=== PATIENT | female | born 1945 | race Two or more races ===

== ENCOUNTER 2024-01-13 06:40 | Inpatient (IN) | payer OTHER ==
[~2024-01-13] VITALS: Ht 165.1 cm; Wt 79.0 kg
[~2024-01-13 06:40] MED LIST: AMLO1TAB23 PO; HYDR50TA47 PO; METO25TA36 PO
[2024-01-13] MEDS ORDERED: DexAMETHasone SOD PHOS 4 MG/1ML SDV INJ ONE (06:48)
[2024-01-13] MEDS ORDERED: BUPIVACAINE W/ EPINEPH 0.5% INJ 50ML MDV IJ ONE (06:49)
[2024-01-13] MEDS ORDERED: LIDOCAINE 1% (LOCAL ANESTH.) PF 5ml SDV ONE (06:59)
[2024-01-13] MEDS ORDERED: fentaNYL CITRATE 100 MCG/2 ML VL ONE (07:59)
[2024-01-13] MEDS ORDERED: MEPERIDINE HCL (50 MG/ML) 1 ML VIAL ONE (08:00)
[2024-01-13] MEDS ORDERED: MIDAZOLAM HCL 2MG/2ML 2ml VIAL (1mg/ml) ONE (08:00)
[2024-01-13] MEDS ORDERED: DexAMETHasone SOD PHOS 10MG/1ML VIAL INJ ONE (09:39)
[2024-01-13] MEDS: TRANEXAMIC ACID 20 ML ONE (09:48)
[2024-01-13] MEDS: ceFAZolin 2 GM/D5W50ml 50 ML IV ONE (09:48)
[2024-01-13] MEDS: CEFEPIME 1GM/ 50ML 50 ML IV ONE (10:20)
[2024-01-13] MEDS ORDERED: MIDAZOLAM HCL 2MG/2ML 2ml VIAL (1mg/ml) IV PRN (10:30)
[2024-01-13] MEDS ORDERED: HYDROmorphone HCL 2 MG/ML VL/or syr IV PRN (10:30)
[2024-01-13] MEDS ORDERED: ePHEDrine SULFATE 50 MG/ML AMP IV PRN (10:30)
[2024-01-13] MEDS ORDERED: MORPHINE SULFATE 4 MG/ML SYR/VIAL IV PRN (10:30)
[2024-01-13] MEDS ORDERED: LABETALOL HCL 5 MG/ML 4ML SYRINGE IV PRN (10:30)
[2024-01-13] MEDS ORDERED: SUGAMMADEX 200mg/2ml Vial (100MG/ML) IV ONE (14:08)
[2024-01-13 14:35] VITALS: O2SAT 94
[2024-01-13] MEDS ORDERED: NITROGLYCERIN 0.4 MG SL TAB SL PRN (14:45)
[2024-01-13] MEDS ORDERED: ceFAZolin 1GM/50ML 50 ML IV SCH (14:45)
[2024-01-13] MEDS ORDERED: MORPHINE SULFATE INJ 2 MG/ml SYRG IV PRN (14:45)
[2024-01-13] MEDS: ONDANSETRON HCL 4 MG/2 ML VIAL IV ONE (15:55)
[2024-01-13 16:05] VITALS: PULSE 79; RESP 12; O2SAT 95
[2024-01-13] MEDS: LACTATED RINGER'S 1,000 ML IV SCH (16:05)
[2024-01-13 17:08] VITALS: BP 126/69; PULSE 79; RESP 12; TEMP 98; O2SAT 95
[2024-01-13] MEDS: CLINDAMYCIN 900MG IV 50 ML IV ONE (17:47)
[2024-01-13] MEDS: ceFAZolin 1GM/50ML 50 ML IV SCH (17:47)
[2024-01-13 20:00] VITALS: PULSE 80
[2024-01-13 21:00] VITALS: BP 133/71; PULSE 84; RESP 18; TEMP 98.4; O2SAT 93
[2024-01-13] MEDS: DOCUSATE SOD 100 MG CAP PO SCH (22:08)
[2024-01-13] MEDS: ONDANSETRON HCL 4 MG/2 ML VIAL IV PRN (22:16)
[2024-01-14 01:00] VITALS: BP 137/70; PULSE 87; RESP 18; TEMP 98.2; O2SAT 92
[2024-01-14] MEDS: OXYCODONE W/ ACETAMINOPHEN 5/325MG TABLET PO PRN (03:03)
[2024-01-14 05:00] VITALS: BP 124/60; PULSE 85; RESP 18; TEMP 98.2; O2SAT 93
[2024-01-14 05:08] LABS: Hematocrit 37.6 % (36.0-46.0); Hemoglobin 12.5 g/dL (12.2-16.2)
[2024-01-14 05:24] LABS: Alanine Aminotransferase 166 U/L (7-40); Albumin 3.9 g/dL (3.2-4.8); Alkaline Phosphatase 75 U/L (46-116); Anion Gap 4 (5-15); Aspartate Aminotransferase 151 U/L (13-40); BUN/Creatinine Ratio 18.5 (10.0-20.0); Bilirubin, Total 0.7 mg/dL (0.2-1.0); Blood Urea Nitrogen 17 mg/dL (9-23); Calcium 10.6 mg/dL (8.7-10.4); Carbon Dioxide 26 mmol/L (20-30); Chloride 111 mmol/L (98-107); Glucose 140 mg/dL (74-106); Potassium 4.4 mmol/L (3.5-5.1); Sodium 141 mmol/L (136-145); Total Protein 6.4 g/dL (5.7-8.2)
[2024-01-14 08:00] VITALS: PULSE 77; PULSE 80; RESP 16; O2SAT 91
[2024-01-14] MEDS: HYDROmorphone HCL 2 MG/ML VL/or syr IV PRN (08:06)
[2024-01-14 09:00] VITALS: BP 123/58; PULSE 77; RESP 16; TEMP 98.1; O2SAT 91
[2024-01-14 12:34] VITALS: BP 120/68; PULSE 87; RESP 16; TEMP 98.7; O2SAT 87
== END 2024-01-14 14:25 | disposition home or self-care (01) | DRG 483 ==
LOC: SUR 06:40 → TELE 14:58 → TELE-EAST 16:54
PROVIDERS: ADMIT Orthopaedic Surgery Sports Medicine; ATTEND Orthopaedic Surgery Sports Medicine
PROC: 0RRK00Z Replacement of Left Shoulder Joint with Reverse Ball and Socket Synthetic Substitute, Open Approach (ICD-10-PCS; principal; 2024-01-13 09:48)
DX: S42.202A Unspecified fracture of upper end of left humerus, initial encounter for closed fracture (principal); S43.015A Anterior dislocation of left humerus, initial encounter; I10 Essential (primary) hypertension; Z82.0 Family history of epilepsy and other diseases of the nervous system; Z82.49 Family history of ischemic heart disease and other diseases of the circulatory system; X58.XXXA Exposure to other specified factors, initial encounter; Y93.89 Activity, other specified; Y92.89 Other specified places as the place of occurrence of the external cause; Y99.8 Other external cause status
CPT/HCPCS: 36415; 73030; 76000; 80053; 85014; 85018; 86850; 86900; 86901; A4565; G0378; J1100; J2250; J2405; J3490